=== PATIENT | male | born 1990 | race Caucasian/White ===

== ENCOUNTER 2016-03-27 20:01 | Emergency (ER) | payer MEDICAID ==
[~2016-03-27] VITALS: Ht 165.1 cm; Wt 74.0 kg
[2016-03-27 20:05] VITALS: Ht 165.1 cm; Wt 74.0 kg
[2016-03-27] MEDS ORDERED: AZITHROMYCIN 250 MG TAB PO ONE (22:00)
[2016-03-27] MEDS ORDERED: CEFTRIAXONE 250 MG INJ IM ONE (22:00)
--- NOTE | 2016-03-27 22:03 | ERD ---
ER Documentation Chief Complaint Date/Time DATE: 03/27/16 TIME: 22:01 Chief Complaint painful urination w/rash on his perineum x a week HPI This is a 25-year-old male presents to the ER with a rash that started hernia week ago. Patient states that rash with very itchy and slightly painful. Patient also complaining of urination. Denies any penile discharge. He denies any fevers or chills. He denies any hematuria. He denies any testicular pain or swelling. Is currently sexually active with a female in a monogamous relationship. Patient has had recent unprotected sex. ROS 12 point review of systems was done, all negative except per HPI. Medications Home Meds Active Scripts Clotrimazole* (Clotrimazole* AF) 1% - 30 Gm Cream.gm., 1 APPLIC TOP BID for 7 Days, TUB Prov:MARIBETH NICOLAS 03/27/16 Allergies Allergies: Coded Allergies: No Known Allergy (Verified Allergy, Unknown, 02/02/10) PMhx/Soc Hx Neurological Disorder: No Hx Respiratory Disorders: No Hx Cardiac Disorders: No Hx Psychiatric Problems: No Hx Miscellaneous Medical Probl: No Hx Alcohol Use: No Hx Substance Use: No Physical Exam Vitals Vital Signs Date Time Temp Pulse Resp B/P Pulse Ox O2 Delivery O2 Flow Rate FiO2 03/27/16 20:05 98.3 55 18 113/55 99 Physical Exam GENERAL: The patient is well developed and appropriate for usual state of health , in no apparent distress. HEENT: Atraumatic CHEST: Clear to auscultation bilaterally. There are no rales, wheezes or rhonchi. HEART: Regular rate and rhythm. No murmurs, clicks, rubs or gallops. EXTREMITIES: . Grossly neurovascularly intact. : no penile discharge, no rash is seen at this time. no testicular swelling or redness NEURO: Alert and oriented. Results 24 hrs Laboratory Tests Test 03/27/16 22:19 Urine Bilirubin NEGATIVE Urine Clarity CLEAR Urine Color LT. YELLOW Urine Glucose NEGATIVE% Urine Hemoglobin NEGATIVE Urine Ketones NEGATIVE Urine Leukocyte Esterase NEGATIVE Urine Nitrite NEGATIVE Urine Specific Burton 1.025 Urine Total Protein NEGATIVE Urine Urobilinogen 0.2 E.U./dL Urine pH 6.0 Current Medications Medications (Trade) Dose Ordered Sig/Leon Route PRN Reason Start Time Stop Time Status Last Admin Dose Admin Ceftriaxone Sodium (Rocephin) 250 mg ONCE ONCE IM 03/27/16 22:00 03/27/16 22:01 DC 03/27/16 22:26 Azithromycin (Zithromax) 1,000 mg ONCE ONCE PO 03/27/16 22:00 03/27/16 22:01 DC 03/27/16 22:26 Procedures/MDM This is a 25-year-old male presents to the ER with painful urination and a rash to his perineum. I do not appreciate a rash that. However patient states that area is very itchy. Patient will be sent home with clotrimazole for possible fungal infection. Suspicion for STI is high. He was treated for possible chlamydia plan. His urine was sent for testing. I doubt testicular torsion as patient does not have any testicular pain or swelling. She needs to follow up with primary care doctor within 1-2 days or return to ER sooner symptoms worsen. My medical decision making was shared with the patient he understands and agrees with plan. Departure Diagnosis: Primary Impression: Dysuria Condition: Stable MARIBETH NICOLAS Mar 27, 2016 22:03
[2016-03-27 22:39] LABS: ADD UMIC NO; URINE BILIRUBIN (Dip) NEGATIVE (NEGATIVE); URINE BLOOD (Dip) NEGATIVE (NEGATIVE); URINE COLOR LT. YELLOW (YELLOW); URINE GLUCOSE (Dip) NEGATIVE (NEGATIVE); URINE KETONES (Dip) NEGATIVE (NEGATIVE); URINE LEUKOCYTE ESTERASE (Dip) NEGATIVE (NEGATIVE); URINE NITRITE (Dip) NEGATIVE (NEGATIVE); URINE TOTAL PROTEIN (Dip) NEGATIVE (NEGATIVE); URINE UROBILINOGEN (Dip) 0.2 E.U./dL (0.1-1.0)
[2016-03-27] MEDS ORDERED: CLOT30CR24 TOP (22:49)
[2016-03-27 23:03] VITALS: BP 118/62; PULSE 70; RESP 18; TEMP 98.7
== END 2016-03-27 23:04 | disposition home or self-care (01) ==
LOC: FTE 20:01
DX: R30.0 Dysuria (principal)
CPT/HCPCS: 81003; 87591; 96372; J0696; Z7502; Z7610